=== PATIENT | female | born 1930 | race Caucasian/White ===

== ENCOUNTER 2017-12-17 12:08 | Day surgery (SDC) | payer MEDICARE, BC ==
[~2017-12-17] VITALS: Ht 162.6 cm; Wt 80.5 kg
[2017-12-17] VITALS (7 sets, daily range): BP systolic 118–168; BP diastolic 64–100; PULSE 80–96; TEMP 97.6–97.9
[~2017-12-17 12:08] MED LIST: AMBIEN 10MG10 MG PO; AMBIEN 5MG TABLE5 MG PO; ASPIRIN 81M81 MG/TA2 PO; ASPIRIN E.C. 8181 MG PO; ATIVAN 0.50.5 MG/TAB PO; CENTRUM1 TA1 PO; CENTRUM1 TAB PO; COLESTID 1GM1 G PO; COZAAR 25MG25 MG/TAB PO; COZAAR100 MG PO; DESYREL 100MG100 MG PO; DESYREL 50MG50 MG PO; GLUCOTROL 5M5 MG/TAB PO; GLUCOTROL XL5 MG/TAB PO; INCRUSE EL62.5 MCG/A IH; LEXAPRO20 MG PO; LORTAB 5/500 501 TAB PO; MUCINEX 60600 MG/TA1 PO; NORCO 325 MG-51 TAB PO; OXYGEN MC; PRAVACHOL 20MG20 MG PO; PRAVACHOL80 MG PO; PRILOSEC 20MG20 MG PO; PROAIR HFA0.09 MG/AC IH; PROTONIX 40MG T40 MG PO; PYRIDIUM 100MG100 MG PO; RT SPIRIVA18 MCG IH; SENOKOT S 50 MG1 TAB PO; TESSALON P100 MG/CAP PO; THEO-24 30300 MG/CAP PO; THEO-DUR 1100 MG/TAB PO; TIROSINT25 MC1 PO; TOPROL XL 25MG25 MG PO; TOPROL XL100 MG PO; TYLENOL 325MG325 MG PO; VENLAFAXINE225 MG PO; VERAPAMIL240 MG/TAB PO; [UNRECOGNIZED DRUG - OTHER] PO
[2017-12-17] MEDS ORDERED: NORCO 325 MG-51 TAB PO (15:50)
[2017-12-17] MEDS ORDERED: PYRIDIUM 100MG100 MG PO (15:51)
[2017-12-17] MEDS ORDERED: SENOKOT S 50 MG1 TAB PO (15:51)
== END 2017-12-17 16:45 | disposition home or self-care (01) ==
LOC: SDCO 12:08
DX: C67.4 Malignant neoplasm of posterior wall of bladder (principal); N39.46 Mixed incontinence; J44.9 Chronic obstructive pulmonary disease, unspecified; I10 Essential (primary) hypertension; Z85.118 Personal history of other malignant neoplasm of bronchus and lung; Z85.828 Personal history of other malignant neoplasm of skin; E11.9 Type 2 diabetes mellitus without complications; Z79.82 Long term (current) use of aspirin; Z79.899 Other long term (current) drug therapy; Z92.3 Personal history of irradiation; Z87.891 Personal history of nicotine dependence; Z83.3 Family history of diabetes mellitus
CPT/HCPCS: J0690; J2405; J2704; J3010; J7030